=== PATIENT | male | born 1990 | race Caucasian/White ===

== ENCOUNTER 2020-08-22 15:29 | Outpatient (REF) | payer OTHER, SELFPAY ==
[2020-08-26 10:10] LABS: COVID-19 RT-PCR Result NEGATIVE (Negative)
== END 2020-08-22 15:49 ==
LOC: NCHCN 15:29
PROVIDERS: PCP Family Medicine; Visit Provider Registered Nurse
DX: Z20.828 Contact with and (suspected) exposure to other viral communicable diseases (principal)
CPT/HCPCS: U0003